=== PATIENT | female | born 1955 | race Two or more races ===

== ENCOUNTER 2023-10-30 09:53 | Inpatient (IN) | payer MEDICAID ==
[~2023-10-30] VITALS: Ht 172.7 cm; Wt 73.5 kg
[~2023-10-30 09:53] MED LIST: ALL300T PO; HYD500C PO
[2023-10-30] MEDS: methylPREDNISolone SOD SUCC 125 MG/2 ML VL IV ONE (12:09)
[2023-10-30 12:15] LABS: Hemoglobin 11.6 g/dL (12.2-16.2); Red Blood Cells 4.85 10^6/uL (4.0-5.20)
[2023-10-30 12:17] LABS: Hematocrit 36.8 % (36.0-46.0); Mean Corpuscular Hgb Conc. 31.6 g/dL (32.0-36.0); White Blood Cell 9.3 10^3/uL (4.4-10.8)
[2023-10-30 12:29] LABS: Basophils % (manual) 0 (0.0-2.0); Blast Cells 0; Eosinophils % (manual) 0 (0-7); Metamyelocytes % 0; Myelocytes % 0; Promyelocytes % 0; Reactive Lymphocytes 0
[2023-10-30 12:31] LABS: Anion Gap 3 (5-15); Carbon Dioxide 29 mmol/L (20-30); Chloride 104 mmol/L (98-107); Potassium 3.7 mmol/L (3.5-5.1); Sodium 136 mmol/L (136-145)
[2023-10-30 12:32] LABS: Calcium 9.3 mg/dL (8.5-10.1)
[2023-10-30 12:36] LABS: Glucose 140 mg/dL (74-106)
[2023-10-30 12:37] LABS: BUN/Creatinine Ratio 10.7 (10.0-20.0); Blood Urea Nitrogen 8 mg/dL (9-23)
[2023-10-30 12:47] LABS: Band Neutrophils % (manual) 1; Lymphocytes % (manual) 32 (10.0-50.0); Monocytes % (manual) 7 (0-12); Platelet Estimate Adequate
[2023-10-30 12:58] LABS: Urine Bacteria None Seen /hpf (None Seen)
[2023-10-30 13:10] LABS: Urine Blood 1+ /uL (Negative); Urine Clarity Turbid (Clear); Urine Color Yellow (Yellow); Urine Hyaline Cast FEW /lpf (0 - 2); Urine Mucus FEW (None Seen); Urine Protein, UAD 1+ (Negative); Urine Urobilinogen Normal (Negative); Urine WBC 13 /hpf (0 - 5)
[2023-10-30] MEDS ORDERED: MORPHINE SULFATE INJ 2 MG/ml SYRG IV PRN (14:30)
[2023-10-30] MEDS ORDERED: ONDANSETRON HCL 4 MG/2 ML VIAL IV PRN (14:30)
[2023-10-30] MEDS ORDERED: DOCUSATE SOD 100 MG CAP PO PRN (14:30)
[2023-10-30 15:00] VITALS: O2SAT 95
[2023-10-30] MEDS: ALBUTEROL SULF 2.5 MG/0.5ML(0.5%) NEB SOLN NEB ONE (15:03)
[2023-10-30] MEDS: IPRATROPIUM BROM 0.5 MG/2.5ML INH SOL NEB ONE (15:03)
[2023-10-30] MEDS: guaiFENesin-CODEINE Liq 5 ML UD PO ONE (15:36)
[2023-10-30] MEDS: SODIUM CHLORIDE 0.9% 1,000 ML IV SCH (16:04)
[2023-10-30 16:07] LABS: INR 0.98 (0.9-1.15); Prothrombin Time 10.4 sec (9.3-11.8)
[2023-10-30 16:21] VITALS: BP 126/62; PULSE 99; RESP 18; O2SAT 95
[2023-10-30 20:58] VITALS: BP 123/67; PULSE 110; RESP 16; TEMP 98.4; O2SAT 94
[2023-10-30 21:00] VITALS: BP 123/67; PULSE 110; RESP 16; TEMP 98.4; O2SAT 94
[2023-10-30] MEDS ORDERED: VENE1TAB5 PO (21:00)
[2023-10-30] MEDS: levoFLOXacin 500MG 100 ML IV ONE (23:19)
[2023-10-30] MEDS: methylPREDNISolone SOD SUCC 125 MG/2 ML VL IV SCH (23:38)
[2023-10-30] MEDS: guaiFENesin-CODEINE Liq 5 ML UD PO PRN (23:52)
[2023-10-31] VITALS (10 sets, daily range): BP systolic 130–156; BP diastolic 67–81; PULSE 89–109; RESP 18–19; TEMP 97.5–98.1; O2SAT 94–100
[2023-10-31 06:10] LABS: Basophils # (auto) 0 10 ^3/uL (0-0.2); Eosinophils # (auto) 0 10 ^3/uL (0-0.8); Hemoglobin 10.6 g/dL (12.2-16.2); Monocytes # (auto) 0.2 10 ^3/uL (0-1.3); Red Cell Distribution Width 17.1 % (11.8-14.3)
[2023-10-31 06:13] LABS: Basophils % (auto) 0.2 % (0.0-2.0); Hematocrit 32.5 % (36.0-46.0); Lymphocytes # (auto) 0.6 10 ^3/uL (0.4-5.4); Mean Corpuscular Hemoglobin 24.7 pg (28.0-32.0); Mean Corpuscular Hgb Conc. 32.7 g/dL (32.0-36.0); Mean Corpuscular Volume 75.5 fL (80.0-100.0); Monocytes % (auto) 3.7 % (0.0-12.0); Neutrophils # (auto) 5.1 10 ^3/uL (1.6-8.6); Neutrophils % (auto) 86.1 % (37.0-80.0); Red Blood Cells 4.31 10^6/uL (4.0-5.20); White Blood Cell 5.9 10^3/uL (4.4-10.8)
[2023-10-31 06:20] LABS: Alanine Aminotransferase 48 U/L (7-40); Albumin 4.4 g/dL (3.2-4.8); Alkaline Phosphatase 110 U/L (46-116); Anion Gap 8 (5-15); Aspartate Aminotransferase 27 U/L (13-40); BUN/Creatinine Ratio 13.6 (10.0-20.0); Bilirubin, Total 0.5 mg/dL (0.2-1.0); Blood Urea Nitrogen 9 mg/dL (9-23); Calcium 9.5 mg/dL (8.5-10.1); Carbon Dioxide 22 mmol/L (20-30); Chloride 107 mmol/L (98-107); Glucose 250 mg/dL (74-106); Sodium 137 mmol/L (136-145); Total Protein 6.6 g/dL (5.7-8.2)
[2023-10-31] MEDS: IOHEXOL 300 MG/ML 100ML BOTTLE IJ ONE (10:50)
[2023-10-31] MEDS: levoFLOXacin 500MG 100 ML IV SCH (18:16)
[2023-11-01] VITALS (8 sets, daily range): BP systolic 120–137; BP diastolic 62–74; PULSE 68–94; RESP 16–19; TEMP 97.6–98.1; O2SAT 95–100
[2023-11-01 07:08] LABS: Basophils # (auto) 0 10 ^3/uL (0-0.2); Basophils % (auto) 0.6 % (0.0-2.0); Eosinophils # (auto) 0 10 ^3/uL (0-0.8); Hemoglobin 10.5 g/dL (12.2-16.2); Lymphocytes # (auto) 1.2 10 ^3/uL (0.4-5.4); Mean Corpuscular Hgb Conc. 32.9 g/dL (32.0-36.0); Monocytes # (auto) 0.9 10 ^3/uL (0-1.3)
[2023-11-01 07:17] LABS: Lymphocytes % (auto) 16.1 % (10.0-50.0); Mean Corpuscular Hemoglobin 24.8 pg (28.0-32.0); Mean Corpuscular Volume 75.2 fL (80.0-100.0); Monocytes % (auto) 11.6 % (0.0-12.0); Neutrophils # (auto) 5.5 10 ^3/uL (1.6-8.6); Neutrophils % (auto) 71.7 % (37.0-80.0); Red Blood Cells 4.25 10^6/uL (4.0-5.20); White Blood Cell 7.6 10^3/uL (4.4-10.8)
[2023-11-01 07:25] LABS: Anion Gap 6 (5-15); Calcium 9.1 mg/dL (8.5-10.1); Carbon Dioxide 26 mmol/L (20-30); Chloride 109 mmol/L (98-107); Potassium 3.3 mmol/L (3.5-5.1); Sodium 141 mmol/L (136-145)
[2023-11-01 07:31] LABS: Glucose 122 mg/dL (74-106)
[2023-11-01 07:32] LABS: BUN/Creatinine Ratio 16.4 (10.0-20.0); Blood Urea Nitrogen 11 mg/dL (9-23)
[2023-11-01] MEDS: POTASSIUM CHL 20 Meq TABLET PO ONE (08:49)
[2023-11-01 09:28] LABS: Triglycerides 143 mg/dL (< 150)
[2023-11-01 09:29] LABS: LDL Cholesterol 217 mg/dL (< 100)
[2023-11-01 09:30] LABS: Cholesterol 267 mg/dL (< 200)
[2023-11-01 09:41] LABS: Rapid Influenza A Negative (Negative); Rapid Influenza B Negative (Negative)
[2023-11-01 09:42] LABS: COVID19 ANTIGEN SOFIA FIA NEGATIVE (NEGATIVE)
[2023-11-01] MEDS ORDERED: AMOXICILLIN/CLAVUL 875 MG TAB PO ONE (10:00)
[2023-11-01] MEDS: IPRATROPIUM BROM 0.5 MG/2.5ML INH SOL NEB PRN (10:22)
[2023-11-01] MEDS: ALBUTEROL SULF 2.5 MG/0.5ML(0.5%) NEB SOLN NEB PRN (10:22)
[2023-11-01 10:23] LABS: HDL Cholesterol 46 mg/dL (40-59)
[2023-11-01] MEDS: POTASSIUM EFFERVESENT TAB 25 MEQ PO ONE (11:20)
[2023-11-01] MEDS: AZITHROMYCIN 250 MG TAB PO SCH (11:21)
[2023-11-01] MEDS ORDERED: AZIT-43 PO (14:21)
[2023-11-01] MEDS ORDERED: ERGO1CAP23 PO (17:02)
== END 2023-11-01 15:00 | disposition home or self-care (01) | DRG 145 ==
LOC: ER 09:53 → OVERFLOW 16:58 → WEST WING 20:02
PROVIDERS: ADMIT Internal Medicine; ATTEND Emergency Medicine
DX: J20.9 Acute bronchitis, unspecified (principal); D63.8 Anemia in other chronic diseases classified elsewhere; J45.909 Unspecified asthma, uncomplicated; E55.9 Vitamin D deficiency, unspecified; J98.4 Other disorders of lung; R73.03 Prediabetes; Z20.822 Contact with and (suspected) exposure to COVID-19; Z85.6 Personal history of leukemia; Z88.0 Allergy status to penicillin
CPT/HCPCS: 36415; 71045; 71260; 80048; 80053; 80061; 81001; 82306; 83036; 84439; 84443; 85007; 85025; 85027; 85379; 85610; 87426; 87804; 94640; 96374; G0378; J1956

== ENCOUNTER 2023-12-09 10:03 | Emergency (ER) | payer MEDICAID ==
[~2023-12-09] VITALS: Ht 167.6 cm; Wt 68.7 kg
[~2023-12-09 10:03] MED LIST changes: +AZIT-43 PO; +ERGO1CAP23 PO; +VENE1TAB5 PO
[2023-12-09 10:49] VITALS: BP 123/74; PULSE 107; RESP 18; TEMP 97.7; O2SAT 97
[2023-12-09] MEDS ORDERED: VALA1TAB PO (10:57)
== END 2023-12-09 11:06 | disposition home or self-care (01) ==
LOC: ER 10:03
DX: B00.9 Herpesviral infection, unspecified (principal); Z85.9 Personal history of malignant neoplasm, unspecified; Z79.899 Other long term (current) drug therapy; Z88.1 Allergy status to other antibiotic agents